=== PATIENT | female | born 1975 | race Caucasian/White ===

== ENCOUNTER 2018-12-11 15:43 | Emergency (ER) | payer SELFPAY ==
[2018-12-11 15:54] VITALS: BP 129/79; PULSE 94; TEMP 99.4; BMI 24.6
[2018-12-11] MEDS ORDERED: IBUPROFEN 400 MG TABLET (FP) PO ONE ×2 (16:35→16:38)
--- NOTE | 2018-12-11 16:35 | PDOC ---
History of Present Illness - General Chief Complaint: Respiratory Stated Complaint: COLD SYMPTOMS Time Seen by Provider: 12/11/18 16:04 Exam Limitations: Language Barrier - History of Present Illness Initial Comments: 12/11/18 16:44 language interpretation line protection of [place] Patient here with complaints of 5 or 6 lesions therapy come painful to 2 right chin, 1 to right forearm, 2 to the left elbow and forearm. States has been feverish on and off at home, intermittent body aches. Patient has taken no medication for relief but did try Benadryl for the itching. Denies purulent drainage from areas, no erythema but complaints of tenderness. Has a dog at home and is uncertain as to any infestations. Does not wear sunscreen or insect spray. Was affected. Works as a nutrition technician./ Is this a multiple visit Asthma Patient?: No Timing/Duration: reports: just prior to arrival Severity: reports: mild Associated Symptoms: reports: denies symptoms, fever/chills (states had this week, but no thermometer. ), headache, nasal drainage. denies: chest pain/ soreness, cough, dizziness, nasal congestion Past History - Travel Traveled outside of the country in the last 30 days: No Close contact w/someone who was outside of country & ill: No - Past Medical History Allergies/Adverse Reactions: Allergies Allergy/AdvReac Type Severity Reaction Status Date / Time No Known Allergies Allergy Verified 12/11/18 15:54 COPD: No - Suicide/Smoking/Psychosocial Hx Smoking History: Never smoked Review of Systems - Review of Systems Able to Perform ROS?: Yes Is the patient limited Uzbek proficient: Yes Constitutional: Yes: Symptoms Reported, See HPI, Malaise HEENTM: Yes: Symptoms Reported, See HPI Respiratory: No: See HPI Integumentary: Yes: Symptoms Reported, See HPI, Lesions, Pruritus Neurological: Yes: See HPI. No: Symptoms reported, Headache All Other Systems: Reviewed and Negative *Physical Exam - Vital Signs Last Vital Signs Temp Pulse Resp BP Pulse Ox 99.4 F 94 H 18 129/79 99 12/11/18 15:52 12/11/18 15:52 12/11/18 15:52 12/11/18 15:52 12/11/18 16:16 - Physical Exam General Appearance: Yes: Nourished, Appropriately Dressed HEENT: positive: FELIBERTO, Normal ENT Inspection, Normal Voice, TMs Normal, Pharynx Normal Neck: positive: Supple. negative: Tender, Lymphadenopathy (R), Lymphadenopathy (L) Respiratory/Chest: positive: Lungs Clear, Normal Breath Sounds Gastrointestinal/Abdominal: positive: Normal Bowel Sounds, Soft Musculoskeletal: negative: Normal Inspection Extremity: positive: Normal Capillary Refill, Normal Range of Motion. negative : Tender Integumentary: positive: Dry, Warm, Pale, Other (discrete lesions with central pointing, nonfluctuant, mildly erythematous base but not spreading to area. No noted inflammatory response. No streaking. 2 noted to to right chin, upper right forearm, 2 to the left upper arm, 1 to right abdomen.) Neurologic: positive: marketing analytics analyst II-XII NML intact, Fully Oriented, Alert, Normal Mood/ Affect, Normal Response, Motor Strength 5/5 Progress Note - Progress Note Progress Note: Patient without any clinical evidence of significant illness including mosquito born or other rickettsial illness . We'll treat conservatively and given instruction to follow-up with M.D. for any worsening symptoms including high fevers, swelling to the areas, but recommended using topical creams as patient is currently uninsured void costly prescriptive drugs for what appears to be uncomplicated insect bites *DC/Admit/Observation/Transfer Diagnosis at time of Disposition: Viral upper respiratory illness - Discharge Dispostion Disposition: HOME Condition at time of disposition: Stable Decision to Admit order: No - Referrals Referrals: Rene Tejeda MD [Staff Physician] - - Patient Instructions Printed Discharge Instructions: DI for Viral Syndrome Additional Instructions: Rest, drink lots of fluids: Teas, water, soups, Pedialyte Saltwater gargles Steamy showers/seem to face break up mucus Avoid contact with others until fevers and cough resolved Lots of handwashing and good hygiene Continue [id number] medications for symptomatic relief Tylenol or Motrin for fever and pain Followup with private physician in one to 2 days as needed Return to emergency department for worsened symptoms, fevers, dehydration - Post Discharge Activity Forms/Work/School Notes: Back to Work
== END 2018-12-11 16:49 | disposition home or self-care (01) ==
LOC: JERFT 15:43
DX: J06.9 Acute upper respiratory infection, unspecified (principal); L98.8 Other specified disorders of the skin and subcutaneous tissue
CPT/HCPCS: 99282-25